=== PATIENT | female | born 1970 | race Caucasian/White ===

== ENCOUNTER 2019-10-27 14:43 | Emergency (ER) | payer OTHER, SELFPAY ==
--- NOTE | ~2019-10-27 | XR_ITS ---
EXAMINATION: XR chest 2V EXAM DATE: 10/27/2019 15:44 INDICATION: Three-week shortness of breath. TECHNIQUE: Frontal and lateral projections of the chest obtained and reviewed. Comparison is made to prior examination from 08/30/2007. FINDINGS: The lungs are clear. There are no pleural effusions. The cardiomediastinal silhouette is within normal limits. There is no pneumothorax suspected. The bones and soft tissues are unremarkab le. IMPRESSION: No acute cardiopulmonary findings. Reviewed, dictated and finalized at location B.
--- NOTE | ~2019-10-27 | XR_ITS ---
EXAMINATION: XR abdomen/kub 1V EXAM DATE: 10/27/2019 15:45 INDICATION: Abdominal pain, bloating, symptoms 3 weeks. TECHNIQUE: Frontal projection(s) of the abdomen for interpretation. There is no prior study for melina crook. FINDINGS: There is expected amount of colonic stool and gas. No small bowel dilation, nonobstructiv e bowel gas pattern. There are no suspicious calcifications identified. There is no organomegaly suspected. There are mild bony degenerative changes. IMPRESSION: Unremarkable abdomen x-ray exam. Reviewed, dictated and finalized at location B.
[2019-10-27 14:45] VITALS: BP 145/89; PULSE 74; RESP 18; TEMP 36.4; O2SAT 100
--- NOTE | 2019-10-27 15:28 | ECG_ITS ---
Measurements Intervals [place] Rate: 75 P: 6 VT: 173 QRS: 2 QRSD: 76 T: 16 QT: 357 QTc: 401 Interpretive Statements SINUS RHYTHM LOW VOLTAGE- PRECORDIAL LEADS BASELINE WANDER- III, V3 BORDERLINE ECG Electronically Signed On 10-27-2019 19:30:11 CDT by Jm Covarrubias D.O.
--- NOTE | 2019-10-27 15:30 | ED.SOB ---
HPI - SOB/Dyspnea General Chief Complaint: Shortness of Breath/Dyspnea Stated Complaint: diff breathing/hand tingling/abd bloating Time Seen by Provider: 10/27/19 15:13 History of Present Illness HPI Narrative: Shortness of breath for the past 3 weeks. Worse today. Feels like her abdominal organs are pushing up on her lungs and she can't take full breaths. She does report efrem her abdomen seems distended intermittently. No abdominal pain, nausea, vomiting, constipation, diarrhea. She does have associated tingling in the hands. Related Data Home Medications Medication Instructions Recorded Confirmed albuterol sulfate INHALATION 10/27/19 fluticasone propionate INTRANASAL 10/27/19 Allergies Allergy/AdvReac Type Severity Reaction Status Date / Time Penicillins Allergy Severe throat Verified 10/27/19 14:48 swelling naproxen Allergy Unknown SWELLING Verified 10/27/19 14:48 ON FACE Review of Systems Review of Systems: All systems reviewed & are unremarkable except as noted in HPI and below Constitutional: Constitutional: Denies fever(s) Cardiovascular: Cardiovascular: Denies chest pain Respiratory: Respiratory: Denies cough and Reports dyspnea Gastrointestinal: Gastrointestinal: Reports bloating Genitourinary: Genitourinary: Denies dysuria Musculoskeletal: Musculoskeletal: Denies back pain Neurologic: Denies weakness [facility] Social History Social History Gender identity (if verbalized by the patient): Female Exam Const: General: no acute distress and alert Orientation/consciousness: patient oriented x3 HENMT: Head: normal to inspection Resp: Effort & Inspection: normal respiratory effort Auscultation: clear to auscultation bilaterally Cardio: Rate: regular rate Rhythm: regular rhythm GI: GI Palp: Yes Soft to palpation and No Tenderness to palpation present (GI) Skin: General skin exam: normal color Rashes: no rashes Neuro: General: patient oriented x3, moves all extremities and CN's II-XI intact bilaterally Speech: normal speech Extrem: General: normal to inspection and no edema Course Vital Signs Vital signs: Vital Signs Temperature 36.4 C 10/27/19 14:45 Pulse Rate 74 10/27/19 14:45 Respiratory Rate 18 10/27/19 14:45 Blood Pressure 145/89 H 10/27/19 14:45 Pulse Oximetry 100 10/27/19 14:45 Temperature 36.4 C 10/27/19 14:45 Pulse Rate 69 10/27/19 17:44 Respiratory Rate 16 10/27/19 17:44 Blood Pressure 122/89 10/27/19 17:44 Pulse Oximetry 98 10/27/19 17:44 MDM - SOB/Dyspnea MDM Narrative Medical decision making narrative: Symtpoms sound like abdominal bloating, deconditioning and anxiety. Work-up essentially negative. Medical Records Attestation: I reviewed the patient's medical records. Lab Data Attestation: I reviewed the patient's lab results. Result diagrams: 10/27/19 15:56 10/27/19 15:56 Labs: Lab Results 10/27/19 10/27/19 10/27/19 Range/Units 15:56 15:56 15:56 WBC 7.9 (4.5-10.0) K/mm3 RBC 4.39 (4.2-5.4) M/mm3 Hgb 14.6 (12.0-15.0) g/dL Hct 42.3 (37.0-47.0) % MCV 96.4 (80-100) fl MCH 33.3 (26-34) pg MCHC 34.5 (32-36) g/dl RDW 12.5 (11.5-14.5) % Plt Count 202 (150-375) k/mm3 MPV 13.3 H (7.4-10.4) fl Immature Gran % (Auto) 0.3 (0-0.5) % Neut % (Auto) 66.5 (45.5-73.1) % Lymph % (Auto) 22.0 (18.3-44.2) % [place] % (Auto) 8.1 (2.6-8.5) % Eos % (Auto) 1.8 (0-4.4) % Baso % (Auto) 1.3 H (0.2-1.2) % Lymph # (Auto) 1.73 (0.9-3.2) K/mm3 [place] # (Auto) 0.6 (0.1-0.6) K/mm3 Eos # (Auto) 0.1 (0-0.3) K/mm3 Baso # (Auto) 0.1 (0.0-0.1) K/mm3 Abs Immat Gran (auto) 0.02 (0.00-0.031) K/mm3 Absolute Neuts (auto) 5.2 (1.3-6.7) K/mm3 Absolute Nucleated RBC 0.0 (0.0-0.012) K/mm3 Nucleated RBC % 0.0 (0.0-0.2) % % Immature Plt Fraction 11.7 H
[2019-10-27 16:05] LABS: Basophils Absolute Auto 0.1 K/mm3 (0.0-0.1); Basophils Percent Auto 1.3 % (0.2-1.2); Eosinophils Absolute Auto 0.1 K/mm3 (0-0.3); Eosinophils Percent Auto 1.8 % (0-4.4); Hematocrit 42.3 % (37.0-47.0); Hemoglobin 14.6 g/dL (12.0-15.0); Immature Granulocyte Absolute 0.02 K/mm3 (0.00-0.031); Immature Granulocyte Percent A 0.3 % (0-0.5); Immature Platelet Fraction Pct 11.7 % (0.9-11.2); Lymphocytes Absolute Auto 1.73 K/mm3 (0.9-3.2); Mean Corpuscular HGB Conc 34.5 g/dl (32-36); Mean Corpuscular Hemoglobin 33.3 pg (26-34); Mean Corpuscular Volume 96.4 fl (80-100); Mean Platelet Volume 13.3 fl (7.4-10.4); Monocytes Absolute Auto 0.6 K/mm3 (0.1-0.6); Monocytes Percent Auto 8.1 % (2.6-8.5); Neutrophils Absolute Auto 5.2 K/mm3 (1.3-6.7); Neutrophils Percent Auto 66.5 % (45.5-73.1); Platelet Count Result 202 k/mm3 (150-375); Red Blood Count 4.39 M/mm3 (4.2-5.4); Red Cell Distribution Width 12.5 % (11.5-14.5); White Blood Count 7.9 K/mm3 (4.5-10.0)
[2019-10-27 16:14] LABS: Prothrombin Time 12.4 Seconds (11.1-14.7)
[2019-10-27 16:15] LABS: Partial Thromboplastin Time 25.6 SECONDS (22.3-36.8)
[2019-10-27 16:20] LABS: Alanine Aminotransferase 24 U/L (4-35); Albumin Level 4.4 g/dL (3.5-5.1); Alkaline Phosphatase 66 U/L (38-126); Anion Gap 9 mmol/L (8-16); Aspartate Amino Transferase 24 U/L (14-36); Bilirubin,Total 0.6 mg/dL (0.2-1.3); Blood Urea Nitrogen 15 mg/dL (7-17); Calcium 9.6 mg/dL (8.4-10.2); Carbon Dioxide 24 mmol/L (22-30); Chloride 104 mmol/L (98-107); Estimated CRCL calculation 109 ml/min; Estimated Glomerular Filt Rate > 60; Glucose 101 mg/dL (65-105); Potassium 3.8 mmol/L (3.4-5.0); Sodium 137 mmol/L (137-145)
[2019-10-27 16:35] LABS: NT Pro B Type Natriuretic Pept 66 PG/ML (5-100); Troponin I < 0.012 ng/mL (0.000-0.034)
[2019-10-27 17:11] VITALS: BP 114/80; PULSE 80; RESP 17; O2SAT 98
[2019-10-27 17:44] VITALS: BP 122/89; PULSE 69; RESP 16; O2SAT 98
== END 2019-10-27 17:45 | disposition home or self-care (01) ==
PROVIDERS: Emergency Provider Emergency Medicine; PCP Family Medicine
DX: R06.02 Shortness of breath (principal); R94.31 Abnormal electrocardiogram [ECG] [EKG]
CPT/HCPCS: 36415; 71046; 74018; 80053; 83880; 84484; 85025; 85055; 85610; 85730; 93005; 99284